=== PATIENT | female | born 1930 | race Caucasian/White ===

== ENCOUNTER 2017-06-22 00:23 | Emergency (ER) | payer MEDICARE, BC ==
--- NOTE | 2017-06-22 00:35 | EDM.PDOC ---
ED HPI GENERAL MEDICAL PROBLEM - General Chief Complaint: General Stated Complaint: AMBULANCE Time Seen by Provider: 06/22/17 00:30 Source of Information: Reports: Patient - History of Present Illness INITIAL COMMENTS - FREE TEXT/NARRATIVE: HISTORY AND PHYSICAL: History of present illness: Patient presents via EMS from [facility], 15 minutes prior to arrival patient had complained of chest pain however she complains of pain the latter where you ask if it hurts to touch she does have pain with movement of both arms, she has a history of dementia she is in no acute distress whatsoever no obvious shortness of breath or diaphoresis she is an unreliable historian and difficult to reach obtain review of systems she is a code level III She denies fever nausea vomiting chills sweats she denies chest pain shortness breath headache dizziness or palpitation no bowel or urine symptoms again patient is unreliable She clearly does have pain pain with movement of her upper extremities is no bruising joints are atraumatic she does appear mildly dehydrated She does answer questions appropriately 1 spoken to Review of systems: As per history of present illness and below otherwise all systems reviewed and negative. Past medical history: As per history of present illness and as reviewed below otherwise noncontributory. Surgical history: As per history of present illness and as reviewed below otherwise noncontributory. Social history: No reported history of drug or alcohol abuse. Family history: As per history of present illness and as reviewed below otherwise noncontributory. Physical exam: HEENT: Atraumatic, normocephalic, pupils reactive, negative for conjunctival pallor or scleral icterus, mucous membranes moist, throat clear, neck supple, nontender, trachea midline. Lungs: Clear to auscultation, breath sounds equal bilaterally, tenderness along sternal border Heart: S1S2, regular, negative for clicks, rubs, or JVD. Abdomen: Soft, nondistended, nontender. Negative for masses or hepatosplenomegaly. Negative for costovertebral tenderness. Pelvis: Stable nontender. Genitourinary: Deferred. Rectal: Deferred. Extremities: Atraumatic, negative for cords or calf pain. Neurovascular unremarkable. Neuro: Awake, alert, oriented. Cranial nerves II through XII unremarkable. Cerebellum unremarkable. Motor and sensory unremarkable throughout. Exam nonfocal. Diagnostics: []Lab as below EKG Chest 1 view Therapeutics: []Normal saline 250 mL bolus then running at 1 25 mL thereafter Patient returned to [place] Impression: Reproducible chest pain, no apparent distress []Mild dehydration Musculoskeletal pain, no bruising no deformity no evidence of trauma Dementia Chronic history of baseline Code level III Definitive disposition and diagnosis as appropriate pending reevaluation and review of above. - Related Data Allergies Allergy/AdvReac Type Severity Reaction Status Date / Time Sulfa (Sulfonamide Allergy Other Verified 09/24/15 10:11 Antibiotics) Home Meds: Home Meds Melatonin 3 mg PO BEDTIME 09/24/15 [History] Acetaminophen [Tylenol] 325 mg PO Q12H PRN 7 Days tablet 09/15/16 [Rx] Bimatoprost [LUMIGAN 0.01% Ophth Soln] 1 drop EYEBOTH BEDTIME #1 bottle [Rx] Bisacodyl [Dulcolax] 10 mg RECTAL DAILY #20 supp 09/15/16 [Rx] Brimonidine Tartrate [Alphagan P 0.1% Ophth Soln] 1 drop EYEBOTH TID #1 bottle 09/15/16 [Rx] Calcium Citrate/Vitamin D3 [Calcium Cit-Vit D 315-200] 1 each PO DAILY 7 Days tablet 09/15/16 [Rx] Docusate Sodium [Colace] 200 mg PO BID PRN 7 Days cap 09/15/16 [Rx] Dorzolamide/Timolol [Cosopt 2%-0.5% Ophth Soln] 1 drop EYEBOTH BID #1 bottle [Rx] Haloperidol [Haldol] 0.25 mg PO TID PRN #21 tablet 09/15/16 [Rx] Hydrocortisone [Hydrocortisone 2.5% Crm] 30 gm TOP BID PRN #1 tube 09/15/16 [Rx] Lisinopril 20 mg PO DAILY 7 Days tablet 09/15/16 [Rx] Metoprolol Tartrate [Lopressor] 25 mg PO BID #7 tablet 09/15/16 [Rx] Mirtazapine 15 mg PO BEDTIME #7 tablet 09/15/16 [Rx] Nut.Sup,Spec.Frm,L-Fr,Iron/Fos [Twocal HN] 4 oz PO BID 7 Days liquid 09/15/16 [ Rx] Pantoprazole [ProTONIX] 40 mg PO BIDAC #7 tab.cr 09/15/16 [Rx] Polyethylene Glycol 3350 [MiraLAX] 17 gm PO DAILY PRN 7 Days packet 09/15/16 [ Rx] Potassium Chloride [Klor-Con M20] 20 meq PO DAILY 7 Days tab.er 09/15/16 [Rx] Rivastigmine [Exelon] 1 patch TD DAILY #7 patch.td24 09/15/16 [Rx] Sucralfate [Carafate] 1 gm PO QIDACANDBED #28 cup 09/15/16 [Rx] diphenhydrAMINE [Benadryl] 25 mg PO Q8HR PRN 7 Days tablet 09/15/16 [Rx] traMADol [Ultram] 50 mg PO BEDTIME PRN 7 Days tablet 09/15/16 [Rx] traMADol [Ultram] 50 mg PO Q6H PRN 7 Days tablet 09/15/16 [Rx] Past Medical History HEENT History: Reports: Glaucoma, Macular Degeneration, Other (See Below) Other HEENT History: Legally Blind Cardiovascular History: Reports: Afib, Blood Clots/VTE/DVT, CAD, High Cholesterol, Hypertension Other Cardiovascular History: on terminal supervisor use of anticoagulants Respiratory History: Reports: None Gastrointestinal History: Reports: None Genitourinary History: Reports: None 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: Musculoskeletal History: Reports: Osteoarthritis, Other (See Below) Other Musculoskeletal History: generalized weakness Neurological History: Reports: Alzheimers Disease, Other (See Below) Other Neuro History: dementia, Psychiatric History: Reports: Anxiety, Dementia, Depression Endocrine/Metabolic History: Reports: None Hematologic History: Reports: Other (See Below) Other Hematologic History: on terminal supervisor use of anticoagulants Immunologic History: Reports: None Oncologic (Cancer) History: Reports: None Dermatologic History: Reports: Cellulitis Other Dermatologic History: Unable to confirm with patient - Past Surgical History Other Respiratory Surgeries/Procedures: Unable to confirm with patient Other GI Surgeries/Procedures: Umable to confirm with patient Other Endocrine Surgeries/Procedures: unable to confirm with patient Social & Family History - Tobacco Use Smoking Status *Q: Former Smoker Used Tobacco, but Quit: No - Recreational Drug Use Recreational Drug Use: No ED ROS GENERAL - Review of Systems Review Of Systems: ROS reveals no pertinent complaints other than HPI. ED EXAM, GENERAL - Physical Exam Exam: See Below Course - Vital Signs Last Recorded V/S: Last Vital Signs Temp 36.1 C 06/22/17 00:25 Pulse 72 06/22/17 00:25 Resp 14 06/22/17 00:25 BP 157/66 H 06/22/17 00:25 Pulse Ox 97 06/22/17 00:25 - Orders/Labs/Meds Orders: Active Orders 24 hr Category Date Time Status EKG Documentation Completion [RC] STAT Care 06/22/17 00:27 Active Chest 1V Frontal [CR] Stat Exams 06/22/17 00:27 Taken UA W/MICROSCOPIC [URIN] Stat Lab 06/22/17 01:18 Ordered Sodium Chloride 0.9% [Normal Saline] 1,000 ml Med 06/22/17 01:00 Active IV ASDIRECTED Medication Orders Sodium Chloride (Normal Saline) 1,000 mls @ 125 mls/hr IV ASDIRECTED COLLINS Last Admin: 06/22/17 00:57 Dose: 125 mls/hr Labs: Laboratory Tests 06/22/17 06/22/17 06/22/17 Range/Units 00:52 00:52 00:52 WBC 5.23 (4.0-11.0) K/uL RBC 2.56 L (4.30-5.90) M/uL Hgb 9.0 L (12.0-16.0) g/dL Hct 27.4 L (36.0-46.0) % MCV 107.0 H (80.0-98.0) fL MCH 35.2 H (27.0-32.0) pg MCHC 32.8 (31.0-37.0) g/dL RDW Std Deviation 49.3 (28.0-62.0) fl RDW Coeff of William 13 (11.0-15.0) % Plt Count 306 (150-400) K/uL MPV 9.90 (7.40-12.00) fL Neut % (Auto) 28.5 L (48.0-80.0) % Lymph % (Auto) 52.4 H (16.0-40.0) % Cooper % (Auto) 12.8 (0.0-15.0) % Eos % (Auto) 5.7 (0.0-7.0) % Baso % (Auto) 0.6 (0.0-1.5) % Neut # (Auto) 1.5 (1.4-5.7) K/uL Lymph # (Auto) 2.7 H (0.6-2.4) K/uL Cooper # (Auto) 0.7 (0.0-0.8) K/uL Eos # (Auto) 0.3 (0.0-0.7) K/uL Baso # (Auto) 0.0 (0.0-0.1) K/uL Sodium 142 (136-146) mmol/L Potassium 4.1 (3.5-5.1) mmol/L Chloride 109 (98-110) mmol/L Carbon Dioxide 25 (21-31) mmol/L BUN 24 H (6.0-23.0) mg/dL Creatinine 0.8 (0.6-1.5) mg/dL Est Cr Clr Drug Dosing TNP Estimated GFR (MDRD) > 60.0 ml/min Glucose 83 (60-110) mg/dL Calcium 9.1 (8.8-10.8) mg/dL Total Bilirubin 0.4 (0.1-1.5) mg/dL AST 16 (5-40) IU/L ALT 10 (8-54) IU/L Alkaline Phosphatase 83 (40-150) Creatine Kinase 18 (9-236) IU/L CK-MB (CK-2) 1.0 (0-6.6) ng/ml Troponin I < 0.10 (0.0-0.29) NG/ML Total Protein 5.8 L (6.0-8.0) g/dL Albumin 3.3 L (3.4-4.8) g/dL Globulin 2.5 (2.0-3.5) g/dL Albumin/Globulin Ratio 1.3 (1.3-2.8) Meds: Medications Generic Name Dose Route Start Last Admin Trade Name Freq PRN Reason Stop Dose Admin Sodium Chloride 1,000 mls @ 125 mls/hr 06/22/17 01:00 06/22/17 00:57 Normal Saline IV 125 mls/hr ASDIRECTED COLLINS Administration Departure - Departure Time of Disposition: 01:41 Disposition: Home, Self-Care 01 Condition: Fair Clinical Impression: Chest wall pain, Dehydration, mild Anemia Qualifiers: Other causes of anemia: acute posthemorrhagic - Discharge Information Forms: ED Department Discharge Additional Instructions: Follow-up with primary care on rounds Repeat CBC, patient has chronic anemia as per primary care recommendations The following information is given to patients seen in the emergency department who are being discharged to home. This information is to outline your options for follow-up care. We provide all patients seen in our emergency department with a follow-up referral. The need for follow-up, as well as the timing and circumstances, are variable depending upon the specifics of your emergency department visit. If you don't have a primary care physician on staff, we will provide you with a referral. We always advise you to contact your personal physician following an emergency department visit to inform them of the circumstance of the visit and for follow-up with them and/or the need for any referrals to a consulting specialist. The emergency department will also refer you to a specialist when appropriate. This referral assures that you have the opportunity for follow-up care with a specialist. All of these measure are taken in an effort to provide you with optimal care, which includes your follow-up. Under all circumstances we always encourage you to contact your private physician who remains a resource for coordinating your care. When calling for follow-up care, please make the office aware that this follow-up is from your recent emergency room visit. If for any reason you are refused follow-up, please contact the [facility] emergency department at and asked to speak to the emergency department charge nurse. - My Orders Last 24 Hours: My Active Orders 06/22/17 00:27 EKG Documentation Completion [RC] STAT Chest 1V Frontal [CR] Stat 06/22/17 01:00 Sodium Chloride 0.9% [Normal Saline] 1,000 ml IV ASDIRECTED 06/22/17 01:18 UA W/MICROSCOPIC [URIN] Stat - Assessment/Plan Last 24 Hours: My Active Orders 06/22/17 00:27 EKG Documentation Completion [RC] STAT Chest 1V Frontal [CR] Stat 06/22/17 01:00 Sodium Chloride 0.9% [Normal Saline] 1,000 ml IV ASDIRECTED 06/22/17 01:18 UA W/MICROSCOPIC [URIN] Stat
[2017-06-22] MEDS ORDERED: Sodium Chloride 0.9% 1,000 ML IV SCH (01:00)
[2017-06-22 01:23] LABS: CHLORIDE,CL 109 mmol/L (98-110); SODIUM,NA 142 mmol/L (136-146)
[2017-06-22 02:29] VITALS: BP 141/63
--- NOTE | 2017-06-22 09:48 | CR ---
EXAM DATE: 06/22/17 PATIENT'S AGE: 87 Patient: LEONID HUANG Facility: [place], [place] Site . Site : 1930 Study: XRay Chest [id number]/1/2017 2:06:02 AM Ordering Physician: Doctor Rai Final Report: INDICATION: chest pain TECHNIQUE: Chest radiograph 1 view COMPARISON: 09/12/16 FINDINGS: Cardiovascular and mediastinum: The cardiac silhouette is normal in appearance and size. Mediastinum is within normal limits. Lungs and pleural space: Both lungs are unremarkable in appearance. No sign of pleural effusion. No pneumothorax is seen. Bones and soft tissues: No significant findings. IMPRESSION: 1. No acute cardiopulmonary disease seen. Dictated by: Edward Dash MD @ 06/22/2017 02:06:42 (Electronic Signature) Report Signed by Proxy. MEE
== END 2017-06-22 02:22 | disposition home or self-care (01) ==
LOC: MW.ED 00:23
DX: R07.89 Other chest pain (principal); E86.0 Dehydration; D62 Acute posthemorrhagic anemia; E78.00 Pure hypercholesterolemia, unspecified; I10 Essential (primary) hypertension; I25.10 Atherosclerotic heart disease of native coronary artery without angina pectoris; I48.91 Unspecified atrial fibrillation; M19.90 Unspecified osteoarthritis, unspecified site; F32.9 Major depressive disorder, single episode, unspecified; F02.80 Dementia in other diseases classified elsewhere, unspecified severity, without behavioral disturbance, psychotic disturbance, mood disturbance, and anxiety; F41.9 Anxiety disorder, unspecified; Z88.2 Allergy status to sulfonamides; Z79.899 Other long term (current) drug therapy; Z87.891 Personal history of nicotine dependence
CPT/HCPCS: 36415; 71010; 80053; 82550; 82553; 84484; 85025; 93005; 96360; 99285; J7040; 99283